=== PATIENT | female | born 1975 | race Caucasian/White ===

== ENCOUNTER 2019-06-30 16:55 | Emergency (ER) | payer OTHER ==
[~2019-06-30] VITALS: Ht 152.4 cm; Wt 45.4 kg
[2019-06-30 16:58] VITALS: Ht 152.4 cm; Wt 45.4 kg
[2019-06-30 19:31] LABS: AMPHETAMINE QUAL UR POSITIVE (See below)
[2019-07-01 09:01] VITALS: BP 121/70
== END 2019-07-01 09:01 | disposition home or self-care (01) ==
LOC: ED 16:55
PROVIDERS: Emergency Medicine
DX: R41.82 Altered mental status, unspecified (principal); F06.2 Psychotic disorder with delusions due to known physiological condition; F15.10 Other stimulant abuse, uncomplicated; F20.9 Schizophrenia, unspecified
CPT/HCPCS: J1630; J2250; J7030

== ENCOUNTER 2020-08-19 13:01 | Emergency (ER) | payer OTHER ==
[~2020-08-19] VITALS: Ht 162.6 cm; Wt 54.4 kg
[2020-08-19 13:14] VITALS: Ht 162.6 cm; Wt 54.4 kg
[2020-08-19 17:55] VITALS: BP 130/72
== END 2020-08-19 17:55 | disposition home or self-care (01) ==
LOC: ED 13:01
DX: F20.9 Schizophrenia, unspecified (principal)
CPT/HCPCS: G0480

== ENCOUNTER 2020-09-23 16:28 | Emergency (ER) | payer OTHER ==
[~2020-09-23] VITALS: Ht 160 cm; Wt 55.8 kg
[2020-09-23 16:33] VITALS: Ht 160 cm; Wt 55.8 kg
[2020-09-23] MEDS ORDERED: ATIVAN1 MG PO (19:34)
[2020-09-24 05:45] VITALS: BP 120/74
== END 2020-09-24 07:54 | disposition home or self-care (01) ==
LOC: ED 16:28
DX: F41.9 Anxiety disorder, unspecified (principal)